=== PATIENT | female | born 1950 | race Hispanic/Latino ===

== ENCOUNTER 2019-08-12 15:09 | Outpatient (CLI) | payer MEDICARE ==
--- NOTE | 2019-08-12 16:15 | RAD ---
FIVE VIEWS LUMBAR SPINE: 08/12/19 HISTORY: Intervertebral disc degeneration. Patient states low back pain that radiates to legs. COMPARISON: None. FINDINGS: There are five nonribbearing lumbar type vertebral bodies. The vertebral body heights are within norm al limits. Intervertebral disc space narrowing is present at the L3-4 and L4-5 levels. Grade I deysi listhesis of L3 on L$ and L4 on L5 is present. The degree of listhesis at the L4-5 level on flexion m easures 7 mm without significant abnormal translational motion between the flexion and extension view s. However, the degree of anterolisthesis at the L4-5 level on flexion measures 11 mm and on extensio n measures approximately 8 mm. Slight grade I anterolisthesis of L5 on S1 is present. No significant abnormal translational motion is present. No fracture is appreciated. Facet degenerative changes are present at multiple levels. Vascular calcifications are seen in the abdominal aorta and iliac arteries. IMPRESSION: 1. Multilevel degenerative changes of the lumbar spine with grade I anterolisthesis of L3 on L4 and L4 on L5 with evidence of abnormal translational motion at the L4-5 level. 2. Slight retrolisthesis of L2 on L3 and slight grade I anterolisthesis of L5 on S1. POS: [facility]
== END 2019-08-12 15:10 | disposition home or self-care (01) ==
LOC: NAV RAD 15:09
PROVIDERS: ATTEND Pain Medicine Pain Medicine
DX: M51.37 Other intervertebral disc degeneration, lumbosacral region (principal); M47.816 Spondylosis without myelopathy or radiculopathy, lumbar region; M43.16 Spondylolisthesis, lumbar region; M43.17 Spondylolisthesis, lumbosacral region; R93.7 Abnormal findings on diagnostic imaging of other parts of musculoskeletal system
CPT/HCPCS: 72120

== ENCOUNTER 2019-11-19 17:58 | Emergency (ER) | payer MEDICARE ==
[2019-11-19] MEDS ORDERED: HYDROcodone/Acetaminophen 5/325 mg Tablet ONE (18:48)
[2019-11-19] MEDS ORDERED: Dexamethasone 4 mg/ml Vial ONE (18:49)
[2019-11-19] MEDS ORDERED: Ketorolac Tromethamine 30 MG/ML VIAL ONE (18:49)
== END 2019-11-19 19:10 | disposition home or self-care (01) ==
LOC: NAV ERS 17:58
DX: M54.5 Low back pain (principal); G89.29 Other chronic pain; I10 Essential (primary) hypertension; E11.9 Type 2 diabetes mellitus without complications; E78.5 Hyperlipidemia, unspecified; F41.9 Anxiety disorder, unspecified; E78.00 Pure hypercholesterolemia, unspecified
CPT/HCPCS: 96372; 99283; J1100; J1885

== ENCOUNTER 2020-06-07 13:52 | Outpatient (CLI) | payer MEDICARE ==
--- NOTE | 2020-06-07 14:50 | RAD ---
Lumbar spine 4 views: 06/07/2020 COMPARISON: 08/12/2019 HISTORY: Back pain, no history of injury FINDINGS: There are degenerative changes involving the hips and sacroiliac joints. Frontal imaging demonstrates 5 lumbar type vertebral bodies with intact pedicles. Standing neutral la teral imaging demonstrates 5 mm of retrolisthesis at L2-3 as well as anterolisthesis at L3-4, L4-5, and L5-S1 measuring 5 mm, 8 mm, and 7 mm respectively. There is multilevel disc space narrowing and d egenerative endplate change, most prominent at L4-5 and L5-S1. There is atherosclerotic calcification of the abdominal aorta. Flexion imaging demonstrates 8 mm retrolisthesis at L2-3 and anterolisthesis measuring 4 mm at L3-4, 9 mm at L4-5, and 7 mm at L5-S1. Extension imaging demonstrates retrolisthesis at L2-3 measuring 8 mm in anterolisthesis measuring 6 m m at L3-4, 7 mm at L4-5, and 8 mm at L5-S1. No acute osseous abnormality. IMPRESSION: Degenerative changes as above.
== END 2020-06-07 13:53 | disposition home or self-care (01) ==
LOC: NAV RAD 13:52
DX: M47.26 Other spondylosis with radiculopathy, lumbar region (principal); M47.28 Other spondylosis with radiculopathy, sacral and sacrococcygeal region; M16.0 Bilateral primary osteoarthritis of hip; Z79.891 Long term (current) use of opiate analgesic
CPT/HCPCS: 72120

== ENCOUNTER 2020-08-07 10:56 | Emergency (ER) | payer MEDICARE | END 2020-08-07 12:42 | disposition home or self-care (01) | LOC: NAV ERS 10:56 | DX: S32.19XA Other fracture of sacrum, initial encounter for closed fracture (principal); E11.9 Type 2 diabetes mellitus without complications; E78.5 Hyperlipidemia, unspecified; E78.00 Pure hypercholesterolemia, unspecified; I10 Essential (primary) hypertension; Z79.899 Other long term (current) drug therapy; W19.XXXA Unspecified fall, initial encounter | CPT/HCPCS: 72131; 72192 ==

== ENCOUNTER 2021-03-22 09:18 | Emergency (ER) | payer MEDICARE | END 2021-03-22 10:15 | disposition home or self-care (01) | LOC: NAV ERS 09:18 | DX: K04.7 Periapical abscess without sinus (principal); E11.9 Type 2 diabetes mellitus without complications; E78.5 Hyperlipidemia, unspecified; I10 Essential (primary) hypertension; Z79.899 Other long term (current) drug therapy | CPT/HCPCS: 99283 ==